=== PATIENT | female | born 2000 | race Caucasian/White ===

== ENCOUNTER 2022-08-15 14:26 | Emergency (ER) | payer MEDICAID ==
[~2022-08-15] VITALS: Ht 160 cm; Wt 112.0 kg
[2022-08-15 15:54] VITALS: BP 134/88
[2022-08-15] MEDS ORDERED: IBUP800T27 PO (15:57)
[2022-08-15] MEDS ORDERED: CEPH-510 PO (15:57)
== END 2022-08-15 16:09 | disposition home or self-care (01) ==
LOC: ER 14:26
DX: I88.9 Nonspecific lymphadenitis, unspecified (principal); Z79.1 Long term (current) use of non-steroidal anti-inflammatories (NSAID); Z79.899 Other long term (current) drug therapy